=== PATIENT | female | born 1950 | race African-American/Black ===

== ENCOUNTER 2016-07-05 20:15 | Emergency (ER) | payer OTHER ==
[2016-07-05 20:26] VITALS: BP 166/90; PULSE 98; TEMP 98; BMI 32.8
[2016-07-05] MEDS ORDERED: ALBUTEROL SO4 2.5/IPRATROPIUM 0.5 INH SOL 3 ML VIAL.NEB. NEB ONE ×2 (21:14)
--- NOTE | 2016-07-05 21:53 | PDOC ---
History of Present Illness - General Chief Complaint: Respiratory Stated Complaint: COUGHING/DIFF. BREATHING Time Seen by Provider: 07/05/16 20:51 History Source: Patient Exam Limitations: No Limitations - History of Present Illness Initial Comments: 07/05/16 21:48 CC 4 days of fever, cough and congestion; pt is HCW Timing/Duration: reports: getting worse Severity: reports: mild Modifying Factors: improves with: albuterol inhaler Associated Symptoms: reports: cough, fever/chills, nasal congestion, nasal drainage, sore throat, wheezing Past History - Past Medical History Allergies/Adverse Reactions: Allergies Allergy/AdvReac Type Severity Reaction Status Date / Time erythromycin base Allergy Mild Rash Verified 07/05/16 20:22 Sulfa (Sulfonamide Allergy Mild Rash Verified 07/05/16 20:22 Antibiotics) [Sulfa(Sulfonamide Antibiotics)] Home Medications: Ambulatory Orders Hydrochlorothiazide [Hctz -] 25 mg PO DAILY #30 tablet 11/15/15 HTN: Yes Hypercholesterolemia: Yes - Immunization History Td Vaccination: No Immunization Up to Date: Yes - Psycho/Social/Smoking Cessation Hx Anxiety: No Suicidal Ideation: No Smoking Status: No Smoking History: Never smoked Number of Cigarettes Smoked Daily: 0 Cigars Per Day: 0 Hx Alcohol Use: No Drug/Substance Use Hx: No Substance Use Type: None Review of Systems - Review of Systems Constitutional: Yes: Fever, Malaise. No: Chills HEENTM: Yes: Nose Congestion. No: Difficulty Swallowing Respiratory: No: Symptoms reported, Cough Cardiac (ROS): No: Symptoms Reported ABD/GI: No: Symptoms Reported : No: Symptoms Reported Musculoskeletal: No: Symptoms Reported *Physical Exam - Vital Signs Last Vital Signs Temp Pulse Resp BP Pulse Ox 98 F 98 H 20 166/90 98 07/05/16 20:23 07/05/16 20:23 07/05/16 20:23 07/05/16 20:23 07/05/16 20:23 - Physical Exam General Appearance: Yes: Appropriately Dressed HEENT: positive: TMs Normal, Pharynx Normal, Nasal Congestion, Rhinorrhea Neck: positive: Supple. negative: Tender, Rigid, Lymphadenopathy (R), Lymphadenopathy (L) Respiratory/Chest: positive: Rhonchi, Wheezing (scattered wheezing). negative: Accessory Muscle Use, Stridor Cardiovascular: negative: Regular Rhythm ED Treatment Course - Medications Given in the ED: ED Medications Discontinued Medications Generic Name Dose Route Start Last Admin Trade Name Jenae PRN Reason Stop Dose Admin Albuterol/Ipratropium 1 amp 07/05/16 21:14 07/05/16 21:21 Duoneb - NEB 07/05/16 21:15 1 amp ONCE ONE Administration Medical Decision Making - Medical Decision Making 07/05/16 21:50 feelling better post 1 albuterol; HCW will sent home with Loren posey and albuterol *DC/Admit/Observation/Transfer Diagnosis at time of Disposition: Acute bronchitis with bronchospasm - Discharge Dispostion Disposition: HOME Condition at time of disposition: Stable Admit: No - Patient Instructions Additional Instructions: please see local MD end of week if no better - Post Discharge Activity Work/School Note: Back to Work
== END 2016-07-05 22:01 | disposition home or self-care (01) ==
LOC: JERFT 20:15 → JER 20:15 → JERFT 22:01
PROC: 3E0F7GC Introduction of Other Therapeutic Substance into Respiratory Tract, Via Natural or Artificial Opening (ICD-10-PCS; principal; 2016-07-05)
DX: J20.9 Acute bronchitis, unspecified (principal); I10 Essential (primary) hypertension; E78.00 Pure hypercholesterolemia, unspecified
CPT/HCPCS: 94640; 99281-25

== ENCOUNTER 2016-07-08 22:31 | Emergency (ER) | payer OTHER ==
[2016-07-08 22:48] VITALS: BP 139/78; PULSE 95; TEMP 100.4; BMI 34.4
[2016-07-09] MEDS ORDERED: ALBUTEROL SO4 2.5/IPRATROPIUM 0.5 INH SOL 3 ML VIAL.NEB. NEB ONE (00:54)
[2016-07-09] MEDS ORDERED: ACETAMINOPHEN WITH CODEINE 300MG/30MG TABLET PO ONE (01:22)
[2016-07-09] MEDS ORDERED: ACETAMINOPHEN WITH CODEINE 300MG/30MG TABLET ONE (01:32)
--- NOTE | 2016-07-09 01:46 | PDOC ---
History of Present Illness <Arsalan Camargo - Last Filed: 07/09/16 01:39> - General History Source: Patient, Old Records Exam Limitations: No Limitations - History of Present Illness Initial Comments: 07/09/16 01:52 The patient is a 65 year old female, with a significant past medical history of HTN and HLD, who presents to the emergency department with cough for a 1 week. She states that the cough is dry in nature, worse at night and alleviated when she sits up. She reports that she also has chest tightness, which is mild in nature, without radiation or modifying factors. She also reports that she has been having chills and rhinorrhea associated with her chief complaints. She received her flu this shot this year. She notes that her son had lower lobe pneumonia 3 weeks ago. The patient denies chest pain, shortness of breath, headache and dizziness. Denies fever, chills, nausea, vomit, diarrhea and constipation. Denies dysuria Allergies: Erythromycin base and sulfa Past surgical history: None reported Social history: No alcohol, tobacco or drug use reported <Yovani Lanza - Last Filed: 07/09/16 01:53> - General Chief Complaint: Respiratory Stated Complaint: SHORTNESS OF BREATH Time Seen by Provider: 07/08/16 23:40 Past History - Past Medical History HTN: Yes Hypercholesterolemia: Yes - Immunization History Td Vaccination: No Immunization Up to Date: Yes - Psycho/Social/Smoking Cessation Hx Anxiety: No Suicidal Ideation: No Smoking Status: No Smoking History: Never smoked Number of Cigarettes Smoked Daily: 0 Cigars Per Day: 0 Hx Alcohol Use: No Drug/Substance Use Hx: No Substance Use Type: None <Arsalan Camargo - Last Filed: 07/09/16 01:39> <Yovani Lanza - Last Filed: 07/09/16 01:53> - Past Medical History Allergies/Adverse Reactions: Allergies Allergy/AdvReac Type Severity Reaction Status Date / Time erythromycin base Allergy Mild Rash Verified 07/08/16 22:41 Sulfa (Sulfonamide Allergy Mild Rash Verified 07/08/16 22:41 Antibiotics) [Sulfa(Sulfonamide Antibiotics)] Home Medications: Ambulatory Orders Hydrochlorothiazide [Hctz -] 25 mg PO DAILY #30 tablet 11/15/15 Albuterol 0.083% Nebulizer Juju [Ventolin 0.083% Nebulizer Soln -] 1 neb NEB Q4H #90 vial 07/05/16 Doxycycline Hyclate 100 mg PO BID #14 capsule 07/05/16 Guaifenesin/Codeine Phosphate [Codeine-Guaifen 10-100 mg/5 ml] 10 ml PO QID # 120 ml MDD 30ml 07/09/16 Review of Systems - Review of Systems Able to Perform ROS?: Yes Comments:: 07/09/16 01:52 CONSTITUTIONAL: No fever, no chills, no fatigue EYES: No visual changes ENT: No ear pain, no sore throat CARDIOVASCULAR: +Chest tightness. No palpitations RESPIRATORY: +Cough. No SOB GI: No abdominal pain, no nausea, no vomiting, no constipation, no diarrhea GENITOURINARY: No dysuria, no frequency, no hematuria MUSKULOSKELETAL: No backpain, no joint pain, no myalgias SKIN: No rash NEURO: No headache <Yovani Lanza - Last Filed: 07/09/16 01:53> *Physical Exam - Vital Signs Last Vital Signs Temp Pulse Resp BP Pulse Ox 100.4 F H 95 H 20 139/78 96 07/08/16 22:41 07/08/16 22:41 07/08/16 22:41 07/08/16 22:41 07/08/16 22:41 <Arsalan Camargo - Last Filed: 07/09/16 01:39> - Vital Signs Last Vital Signs Temp Pulse Resp BP Pulse Ox 100.4 F H 95 H 20 139/78 96 07/08/16 22:41 07/08/16 22:41 07/08/16 22:41 07/08/16 22:41 07/08/16 22:41 - Physical Exam Comments: 07/09/16 01:53 CONSTITUTIONAL: Well-appearing; obese; in no apparent distress HEAD: Normocephalic; atraumatic EYES: PERRL; EOM intact ENMT: External appears normal; normal oropharynx NECK: Supple; non-tender; no cervical lymphadenopathy CARD: Normal S1, S2; no murmurs, rubs, or gallops RESP: +Wheezing bilaterally at the bases. Normal chest excursion with respiration; breath sounds equal bilaterally; no rhonchi, or rales ABD: Soft, non-distended; non-tender; no palpable organomegaly, no palpable hernias EXT: Normal ROM in all four extremities; non-tender to palpation; distal pulses intact SKIN: Warm, dry, no rash NEURO: No focal neurological deficiencies. <Yovani Lanza - Last Filed: 07/09/16 01:53> ED Treatment Course - ADDITIONAL ORDERS Additional order review: 07/09/16 00:01 Influenza Types A,B Antigen (RICHARD) - Final Nasopharyngeal Swab - Final - RADIOLOGY Radiology Studies Ordered: Category Date Time Status CHEST PA & LAT [RAD] Stat Radiology 07/09/16 00:52 Taken - Medications Given in the ED: ED Medications Discontinued Medications Generic Name Dose Route Start Last Admin Trade Name Freq PRN Reason Stop Dose Admin Acetaminophen/Codeine Phosphate 1 tab 07/09/16 01:22 07/09/16 01:35 Tylenol # 3 - PO 07/09/16 01:23 1 tab ONCE ONE Administration Albuterol/Ipratropium 1 amp 07/09/16 00:54 07/09/16 01:31 Duoneb - NEB 07/09/16 00:55 1 amp ONCE ONE Administration <Arsalan Camargo - Last Filed: 07/09/16 01:39> - ADDITIONAL ORDERS Additional order review: 07/09/16 00:01 Influenza Types A,B Antigen (RICHARD) - Final Nasopharyngeal Swab - Final - Medications Given in the ED: ED Medications Discontinued Medications Generic Name Dose Route Start Last Admin Trade Name Freq PRN Reason Stop Dose Admin Acetaminophen/Codeine Phosphate 1 tab 07/09/16 01:22 07/09/16 01:35 Tylenol # 3 - PO 07/09/16 01:23 1 tab ONCE ONE Administration Albuterol/Ipratropium 1 amp 07/09/16 00:54 07/09/16 01:31 Duoneb - NEB 07/09/16 00:55 1 amp ONCE ONE Administration <Yovani Lanza - Last Filed: 07/09/16 01:53> Medical Decision Making - Medical Decision Making 07/09/16 01:43 Patient is well-appearing 65-year-old female who presents with signs and symptoms of acute bronchitis with bronchospasm. In the ER, patient is noted to be mildly febrile, normotensive with oxygen saturation of 96% room air. Chest x- ray reveals no evidence of infiltrate or effusion. lung exam reveals bilateral wheezing ( more pronounced on the right). Patient has received nebulizer treatment with albuterol/Atrovent, and Tylenol with Codeine for symptomatic relief. We'll discharge with codeine syrup with continuous therapy with doxycycline and albuterol nebulizer as needed. Patient's curb 65 score is 0. <Arsalan Camargo - Last Filed: 07/09/16 01:39> *DC/Admit/Observation/Transfer - Attestations Physician Attestion: 07/09/16 01:43 The documentation was prepared by the scribe under my direct supervision. I have reviewed the documentation which correctly represents the findings, medical decision-making and critical action taken by me. <Arsalan Camargo - Last Filed: 07/09/16 01:39> - Attestations Scribe Attestion: 07/09/16 01:53 Documentation prepared by Yovani Lanza, acting as medical biller for Arsalan Camargo MD <Yovani Lanza - Last Filed: 07/09/16 01:53> Diagnosis at time of Disposition: Bronchitis, acute, with bronchospasm - Discharge Dispostion Disposition: HOME Condition at time of disposition: Stable - Prescriptions Prescriptions: Guaifenesin/Codeine Phosphate [Codeine-Guaifen 10-100 mg/5 ml] 10 ml PO QID # 120 ml MDD 30ml - Referrals Referrals: pmd, two-3 days [Other] - Patient Instructions Printed Discharge Instructions: DI for Acute Bronchitis
== END 2016-07-09 01:55 | disposition home or self-care (01) ==
LOC: JER 22:31
PROC: 3E0F7GC Introduction of Other Therapeutic Substance into Respiratory Tract, Via Natural or Artificial Opening (ICD-10-PCS; principal; 2016-07-08)
DX: J20.9 Acute bronchitis, unspecified (principal); I10 Essential (primary) hypertension; E78.5 Hyperlipidemia, unspecified; E78.00 Pure hypercholesterolemia, unspecified
CPT/HCPCS: 71020-TC; 87804; 99281-25

== ENCOUNTER 2021-04-13 15:25 | Emergency (ER) | payer OTHER ==
[2021-04-13 15:54] VITALS: BP 136/57; PULSE 82; TEMP 99.8; BMI 35.6
[2021-04-13] MEDS ORDERED: SODIUM CHLORIDE 1,000 ML IV STA (16:20)
[2021-04-13] MEDS ORDERED: ACETAMINOPHEN 1000 MG/100 ML VIAL IVPB ONE (16:20)
[2021-04-13] MEDS ORDERED: ACETAMINOPHEN INJECTION 100 ML IVPB ONE (17:00)
[2021-04-13] MEDS ORDERED: ACETAMINOPHEN 500 MG TABLET (FP) ONE (17:25)
[2021-04-13] MEDS ORDERED: ACETAMINOPHEN 500 MG TABLET (FP) PO ONE (17:25)
[2021-04-13 17:49] LABS: BASO % 0.9 % (0-2.0); EOS % 0.1 % (0-4.5); HEMATOCRIT 39.6 % (32.4-45.2); HEMOGLOBIN 13.2 GM/dL (10.7-15.3); LYMPH % 27.6 % (8-40); MCH 27.8 pg (25.7-33.7); MCHC 33.4 g/dl (32.0-36.0); MEAN CELL VOLUME 83.2 fl (80-96); MEAN PLT VOLUME 9.2 fl (7.5-11.1); MONO % 9.4 % (3.8-10.2); PLATELET COUNT 162 10^3/uL (134-434); RBC 4.76 M/mm3 (3.60-5.2); RDW 15.1 % (11.6-15.6); WHITE BLOOD COUNT 4.8 K/mm3 (4.0-10.0)
[2021-04-13 18:12] LABS: CALCIUM 8.4 mg/dL (8.5-10.1)
[2021-04-13 18:13] LABS: ALBUMIN 2.9 g/dl (3.4-5.0); BLOOD UREA NITROGEN 12.1 mg/dL (7-18)
[2021-04-13 18:16] LABS: CREATININE 0.7 mg/dL (0.55-1.3)
[2021-04-13 18:17] LABS: BILIRUBIN,TOTAL 0.3 mg/dL (0.2-1); TOT PROT 7.4 g/dl (6.4-8.2)
== END 2021-04-13 19:59 | disposition home or self-care (01) ==
LOC: JER 15:25
PROC: 3E0337Z Introduction of Electrolytic and Water Balance Substance into Peripheral Vein, Percutaneous Approach (ICD-10-PCS; principal; 2021-04-13)
DX: U07.1 COVID-19 (principal)
CPT/HCPCS: 36415; 71046-TC-FY; 80053; 85025; 99284-25

== ENCOUNTER 2023-10-22 13:00 | Observation (INO) | payer MEDICARE, OTHER ==
[2023-10-22 13:49] LABS: BASO % 0.7 % (0-2.0); EOS % 1.6 % (0-4.5); HEMATOCRIT 42.6 % (32.4-45.2); HEMOGLOBIN 14.1 GM/dL (10.7-15.3); LYMPH % 19.4 % (8-40); MCH 27.9 pg (25.7-33.7); MCHC 33.1 g/dl (32.0-36.0); MEAN CELL VOLUME 84.3 fl (80-96); MONO % 11.7 % (3.8-10.2); NEUT % 66.6 % (42.8-82.8); PLATELET COUNT 244 10^3/uL (134-434); RBC 5.05 M/mm3 (3.60-5.2); RDW 14.5 % (11.6-15.6); WHITE BLOOD COUNT 7.7 K/mm3 (4.0-10.0)
[2023-10-22 13:59] LABS: INR 1.05 (0.83-1.09); PROTHROMBIN TIME (PATIENT) 12.1 SEC (9.7-13.0)
[2023-10-22 14:02] LABS: ACTIVATED PTT 32.7 SECONDS (25.2-36.5)
[2023-10-22] MEDS: SODIUM CHLORIDE 1,000 ML IV SCH (14:10)
[2023-10-22 14:18] LABS: POTASSIUM 3.3 mmol/L (3.5-5.1)
[2023-10-22 14:19] LABS: CALCIUM 9.6 mg/dL (8.5-10.1)
[2023-10-22 14:20] LABS: ALBUMIN 3.9 g/dl (3.4-5.0)
[2023-10-22 14:22] LABS: BLOOD UREA NITROGEN 32.3 mg/dL (7-18)
[2023-10-22 14:25] LABS: TOT PROT 8.1 g/dl (6.4-8.2)
[2023-10-22 14:27] LABS: BILIRUBIN,TOTAL 0.3 mg/dL (0.2-1)
[2023-10-22 14:56] LABS: CREATININE 1.1 mg/dL (0.55-1.3)
[2023-10-22] MEDS: POTASSIUM CHLORIDE TABS 20 MEQ TABLET.ER (FP) PO ONE (17:30)
[2023-10-22] MEDS: ASPIRIN 81 MG CHEWABLE TABLETS PO ONE ×2 (17:30→17:33)
[2023-10-22] MEDS: ATORVASTATIN CA 80 MG TABLET (FP) PO ONE (17:30)
[2023-10-22] MEDS: ATORVASTATIN CA 40 MG TABLET (FP) PO ONE (17:33)
[2023-10-22] MEDS ORDERED: POTASSIUM CHLORIDE TABS 20 MEQ TABLET.ER (FP) PO ONE (17:38)
[2023-10-22] MEDS ORDERED: ATORVASTATIN CA 80 MG TABLET (FP) ONE (17:38)
[2023-10-22] MEDS ORDERED: ASPIRIN 81 MG CHEWABLE TABLETS ONE (17:38)
[2023-10-22 23:39] VITALS: BMI 33.9
[2023-10-23] MEDS: ENOXAPARIN NA (PORCINE) 40 MG/0.4 ML DISP.SYRIN SQ SCH (09:56)
[2023-10-23] MEDS: ASPIRIN 81 MG CHEWABLE TABLETS PO SCH (09:56)
[2023-10-23 14:21] VITALS: RESP 18
[2023-10-23] MEDS ORDERED: MAGNESIUM HYDROX 2400MG/30ML ORAL SUSPENSION 30 ML CUP PO PRN (15:45)
[2023-10-23 19:08] LABS: PH,URINE 5.5 (5.0-8.0); URINE APPEARANCE CLEAR; URINE BILIRUBIN NEGATIVE (NEGATIVE); URINE COLOR YELLOW; URINE GLUCOSE (UA) NEGATIVE (NEGATIVE); URINE KETONE NEGATIVE (NEGATIVE); URINE LEUK ESTERASE NEGATIVE (NEGATIVE); URINE NITRITE NEGATIVE (NEGATIVE); URINE PROTEIN NEGATIVE (NEGATIVE); URINE UROBILINOGEN 0.2 mg/dL (0.2-1.0)
[2023-10-23] MEDS: SENNOSIDES/DOCUSATE COMBO (SENNA PLUS) TABLET (UD) PO SCH (21:17)
[2023-10-23] MEDS: ATORVASTATIN CA 80 MG TABLET (FP) PO SCH (21:17)
[2023-10-24] MEDS ORDERED: BISACODYL 10 MG SUPP.RECT PR PRN (08:24)
[2023-10-24 09:05] LABS: BASO % 0.3 % (0-2.0); EOS % 4.1 % (0-4.5); HEMATOCRIT 41.1 % (32.4-45.2); HEMOGLOBIN 13.7 GM/dL (10.7-15.3); LYMPH % 28.8 % (8-40); MCH 28.2 pg (25.7-33.7); MCHC 33.3 g/dl (32.0-36.0); MEAN CELL VOLUME 84.6 fl (80-96); MEAN PLT VOLUME 9.6 fl (7.5-11.1); MONO % 8.6 % (3.8-10.2); NEUT % 58.2 % (42.8-82.8); PLATELET COUNT 243 10^3/uL (134-434); RBC 4.86 M/mm3 (3.60-5.2); RDW 14.4 % (11.6-15.6); WHITE BLOOD COUNT 4.9 K/mm3 (4.0-10.0)
[2023-10-24] MEDS: SODIUM PHOSPHATE/NA BIPHOS 133 ML ENEMA RC ONE (09:20)
[2023-10-24] MEDS: POLYETHYLENE GLYCOL (HEALTHYLAX) 3350 17 GM PACKET PO SCH (09:21)
[2023-10-24] MEDS: TRIAMTERENE AND HCTZ - 37.5 MG/25 MG CAPSULE PO SCH (09:22)
[2023-10-24 09:50] LABS: POTASSIUM 4.2 mmol/L (3.5-5.1)
[2023-10-24 09:52] LABS: CALCIUM 9.1 mg/dL (8.5-10.1)
[2023-10-24 09:54] LABS: BLOOD UREA NITROGEN 18.6 mg/dL (7-18)
[2023-10-24 09:56] LABS: CREATININE 0.9 mg/dL (0.55-1.3)
[2023-10-25 07:27] VITALS: TEMP 98.4
[2023-10-25 15:02] VITALS: BP 130/60; PULSE 73
== END 2023-10-25 16:26 | disposition home or self-care (01) ==
LOC: JER 13:00 → JERBED 15:12 → J4S 20:34
PROVIDERS: ADMIT Internal Medicine; ATTEND Nurse Practitioner
PROC: 3E0337Z Introduction of Electrolytic and Water Balance Substance into Peripheral Vein, Percutaneous Approach (ICD-10-PCS; principal; 2023-10-22)
DX: G45.9 Transient cerebral ischemic attack, unspecified (principal); I10 Essential (primary) hypertension; E78.5 Hyperlipidemia, unspecified; R73.03 Prediabetes; G56.01 Carpal tunnel syndrome, right upper limb
CPT/HCPCS: 36415; 70450-TC; 80048; 80053; 80061; 81003; 82550; 82553; 83036; 84484; 85025; 85610; 85730; 86850; 86900; 86901; 93005; 93010; 93306-TC; 93880-TC; 96360; 97116-GP; 97161-GP; 99285-25; G0378

== ENCOUNTER → 2024-05-04 | Day surgery (SDC) | payer OTHER | END | disposition home or self-care (01) | LOC: FMAMMOTONE 13:07 | PROVIDERS: ATTEND Obstetrics & Gynecology | PROC: 0HBU3ZX Excision of Left Breast, Percutaneous Approach, Diagnostic (ICD-10-PCS; principal; 2024-05-04) | DX: N60.22 Fibroadenosis of left breast (principal); N64.89 Other specified disorders of breast; R92.0 Mammographic microcalcification found on diagnostic imaging of breast | CPT/HCPCS: 19081; 76098-TC-FY; 88305-TC ==

== ENCOUNTER 2024-09-05 22:41 | Emergency (ER) | payer OTHER ==
[2024-09-05 23:01] VITALS: RESP 18; BMI 31.9
[2024-09-06 00:52] LABS: ABSOLUTE IMMATURE GRANULOCYTES 0.02 x10^3/uL (0.0-0.031); BASOPHILS # 0.02 x10^3/uL (0.01-0.08); EOSINOPHIL % 3.4 % (0.7-5.8); EOSINOPHILS # 0.25 x10^3/uL (0.04-0.36); HEMATOCRIT 35.5 % (34.1-44.9); HEMOGLOBIN 11.3 g/dL (11.2-15.7); MCHC 31.8 g/dl (32.2-35.5); MEAN CELL VOLUME 86.6 fl (79.4-94.8); MEAN PLT VOLUME 11.5 fl (9.4-12.3); MONOCYTE # 0.74 x10^3/uL (0.24-0.86); MONOCYTE % 10.2 % (4.7-12.5); PLATELET COUNT 201 x10^3/uL (182-369); RDW 14.3 % (12.4-16.6)
[2024-09-06 01:00] VITALS: BP 154/71; PULSE 58; TEMP 98.2
[2024-09-06 01:45] LABS: POTASSIUM 4.1 mmol/L (3.5-5.1)
[2024-09-06 01:47] LABS: ALBUMIN 3.5 g/dl (3.4-5.0); CALCIUM 9.5 mg/dL (8.5-10.1)
[2024-09-06 01:51] LABS: CREATININE 0.8 mg/dL (0.55-1.3)
[2024-09-06 01:52] LABS: BILIRUBIN,TOTAL 0.3 mg/dL (0.2-1); TOT PROT 7.1 g/dl (6.4-8.2)
== END 2024-09-06 02:09 | disposition home or self-care (01) ==
LOC: JER 22:41
DX: R07.89 Other chest pain (principal); R45.1 Restlessness and agitation; R00.2 Palpitations; T44.5X5A Adverse effect of predominantly beta-adrenoreceptor agonists, initial encounter
CPT/HCPCS: 36415; 80053; 83735; 84484; 85025; 93005; 93010; 99284-25